=== PATIENT | male | born 1955 | race Caucasian/White ===

== ENCOUNTER 2016-08-12 17:20 | Emergency (ER) | payer OTHER ==
[~2016-08-12] VITALS: Ht 185.4 cm; Wt 84.8 kg
[2016-08-12 17:29] VITALS: BP 168/98
[2016-08-12 17:55] LABS: APPEARANCE,URINE Clear (CLEAR); BILIRUBIN,URINE Negative (NEGATIVE); BLOOD, URINE Moderate Ery/uL (NEGATIVE); COLOR,URINE Yellow (YELLOW); KETONES,URINE Negative (NEGATIVE); LEUKOCYTE ESTERASE ,URINE Negative (NEGATIVE); NITRITE, URINE Negative (NEGATIVE); PROTEIN,URINE Negative (NEGATIVE); UGLUCOSE Negative (NEGATIVE); UROBILINOGEN,URINE 0.2 EU/dL (0.2)
[2016-08-12 18:05] LABS: BACTERIA,URINE None seen /HPF (None Seen); SQUAMOUS EPITHELIAL CELL,UR Rare /HPF (None Seen)
== END 2016-08-12 18:26 | disposition home or self-care (01) ==
LOC: ER 17:22
DX: N39.0 Urinary tract infection, site not specified (principal); Z87.442 Personal history of urinary calculi
CPT/HCPCS: 81001; 99283; A4606; Z7610; 81000-TC

== ENCOUNTER 2017-01-24 15:36 | Emergency (ER) | payer BC ==
[~2017-01-24] VITALS: Ht 182.9 cm; Wt 78.0 kg
[2017-01-24 16:08] VITALS: BP 137/103
[2017-01-24] MEDS ORDERED: IBUPROFEN 400 MG TABLET ONE (16:18)
[2017-01-24] MEDS ORDERED: IBUPROFEN 400 MG TABLET PO ONE (16:30)
--- NOTE | 2017-01-24 16:31 | NUR ---
CELL TECHNICIAN AT BEDSIDE
== END 2017-01-24 17:28 | disposition home or self-care (01) ==
LOC: ER 15:46
DX: S52.122A Displaced fracture of head of left radius, initial encounter for closed fracture (principal); S52.612A Displaced fracture of left ulna styloid process, initial encounter for closed fracture; Z87.442 Personal history of urinary calculi; W01.0XXA Fall on same level from slipping, tripping and stumbling without subsequent striking against object, initial encounter; Y93.89 Activity, other specified; Y92.89 Other specified places as the place of occurrence of the external cause; Y99.8 Other external cause status
CPT/HCPCS: 29125; 73100; 99284; A4606; Z7610

== ENCOUNTER 2017-08-07 14:38 | Emergency (ER) | payer BC, MEDICAID ==
[~2017-08-07] VITALS: Ht 185.4 cm; Wt 80.7 kg
[2017-08-07 15:32] LABS: BASOPHILS % (AUTO) 0.3 % (0.0-2.0); EOSINOPHILS % (AUTO) 2.6 % (0.0-6.0); HEMATOCRIT 44 % (39-51); HEMOGLOBIN 14.8 g/dL (13.5-17.5); LYMPHOCYTES # (AUTO) 1.2 /CMM (0.8-4.8); LYMPHOCYTES % (AUTO) 19.5 % (20.0-44.0); MEAN CORPUSCULAR HGB CONC 34 g/dl (31.0-36.0); MEAN CORPUSCULAR VOLUME 84 fL (80-96); MONOCYTES # (AUTO) 0.6 /CMM (0.1-1.30); MONOCYTES % (AUTO) 9.2 % (2.0-12.0); NEUTROPHILS # (AUTO) 4.2 /CMM (1.8-8.9); NEUTROPHILS % (AUTO) 68.4 % (43.0-81.0); PLATELET COUNT (AUTO) 190 /CMM (150-450); RDW COEFFICIENT OF VARIATION 12.7 (11.5-15.0); RED BLOOD CELL COUNT(AUTO) 5.18 MIL/uL (4.5-6.0); WHITE BLOOD COUNT (AUTO) 6.2 K/uL (4.3-11.0)
[2017-08-07 15:47] LABS: CALCIUM, SERUM 8.7 mg/dL (8.5-10.1); POTASSIUM 3.5 mmol/L (3.5-5.1)
[2017-08-07 15:53] LABS: ALBUMIN 3.8 g/dL (3.4-5.0); BILIRUBIN,DIRECT 0.1 mg/dL (0.0-0.2); BILIRUBIN,TOTAL 0.6 mg/dL (0.2-1.0); TOTAL PROTEIN, SERUM 6.8 g/dL (6.4-8.2)
[2017-08-07 16:13] VITALS: BP 140/84
== END 2017-08-07 16:22 | disposition home or self-care (01) ==
LOC: ER 14:40
DX: K92.1 Melena (principal); Z98.890 Other specified postprocedural states; Z85.46 Personal history of malignant neoplasm of prostate
CPT/HCPCS: 36415; 80048; 80076; 85025; 85730; 99284; A4606; Z7610

== ENCOUNTER 2017-09-06 07:43 | Emergency (ER) | payer MEDICAID ==
[~2017-09-06] VITALS: Ht 185.4 cm; Wt 79.4 kg
[2017-09-06] MEDS ORDERED: KETOROLAC TROMETHAMINE INJ 30 MG/ML VIAL ONE (08:34)
[2017-09-06] MEDS ORDERED: ONDANSETRON HCL/PF 4 MG/2 ML VIAL ONE (08:34)
[2017-09-06] MEDS: IV NS 0.9% 1,000 ML BAG IV ONE (08:39)
[2017-09-06 08:40] LABS: BASOPHILS % (AUTO) 0.4 % (0.0-2.0); EOSINOPHILS % (AUTO) 3.3 % (0.0-6.0); HEMATOCRIT 44 % (39-51); HEMOGLOBIN 15.1 g/dL (13.5-17.5); LYMPHOCYTES # (AUTO) 0.6 /CMM (0.8-4.8); LYMPHOCYTES % (AUTO) 12.6 % (20.0-44.0); MEAN CORPUSCULAR HEMOGLOBIN 30 PG (26.0-33.0); MEAN CORPUSCULAR HGB CONC 35 g/dl (31.0-36.0); MEAN CORPUSCULAR VOLUME 87 fL (80-96); MONOCYTES # (AUTO) 0.4 /CMM (0.1-1.30); MONOCYTES % (AUTO) 7.4 % (2.0-12.0); NEUTROPHILS # (AUTO) 3.9 /CMM (1.8-8.9); NEUTROPHILS % (AUTO) 76.3 % (43.0-81.0); PLATELET COUNT (AUTO) 165 /CMM (150-450); RED BLOOD CELL COUNT(AUTO) 5.07 MIL/uL (4.5-6.0); WHITE BLOOD COUNT (AUTO) 5.1 K/uL (4.3-11.0)
[2017-09-06] MEDS: ONDANSETRON HCL/PF 4 MG/2 ML VIAL IVP ONE (08:40)
[2017-09-06] MEDS: KETOROLAC TROMETHAMINE INJ 30 MG/ML VIAL IV ONE (08:40)
[2017-09-06 08:52] LABS: CALCIUM, SERUM 9.1 mg/dL (8.5-10.1); CREATININE 1.2 mg/dL (0.6-1.3)
[2017-09-06 10:35] VITALS: BP 148/67
== END 2017-09-06 10:37 | disposition home or self-care (01) ==
LOC: ER 07:45
DX: N20.0 Calculus of kidney (principal); Z85.46 Personal history of malignant neoplasm of prostate; Z98.890 Other specified postprocedural states
CPT/HCPCS: 36415; 80048-TC; 85025-TC; A4606; J1885; J2405; J7030; Z7610

== ENCOUNTER 2018-08-20 21:28 | Emergency (ER) | payer MEDICAID, OTHER ==
[~2018-08-20] VITALS: Ht 185.4 cm; Wt 85.7 kg
--- NOTE | 2018-08-20 21:43 | NUR ---
Note [email or web address] in EDM - 08/20/18 at 2147 by CATIE BIB SELF FROM HOME. AAOX4. NO SOB. BREATHING EVEN AND UNLABORED. AMBULATORY. C/O L ELBOW PAIN WITH MOVEMENT. LIMITED ROM NOTED, UNABLE TO STRAIGHTEN OR BEND. DENIES TRAUMA. TO ER BED 10. AT BEDSIDE REJI PIERRE
--- NOTE | 2018-08-20 21:43 | NUR ---
BIB SELF FROM HOME. AAOX4. NO SOB. BREATHING EVEN AND UNLABORED. AMBULATORY. C/O L ELBOW PAIN WITH MOVEMENT STARTED NOON. LIMITED ROM NOTED, UNABLE TO STRAIGHTEN OR BEND. DENIES TRAUMA. TO ER BED 10. AT BEDSIDE REJI PIERRE
--- NOTE | 2018-08-20 21:55 | NUR ---
XRAY AT BEDSIDE
[2018-08-20] MEDS ORDERED: IBUPROFEN 400 MG TABLET ONE (21:57)
[2018-08-20] MEDS ORDERED: IBUPROFEN 400 MG TABLET PO ONE (22:00)
--- NOTE | 2018-08-20 23:07 | NUR ---
Note malik in EDM - 08/20/18 at 2308 by LIZA Patient discharged to home in stable condition. Written and verbal after care instructions given. Patient verbalizes understanding of instruction.IV removed. Catheter intact and site benign. Pressure and 4x4 applied to site. No bleeding noted.
--- NOTE | 2018-08-20 23:08 | NUR ---
Patient discharged to home in stable condition. Written and verbal after care instructions given. Patient verbalizes understanding of instruction.Pt ambulatory with a steady gait
[2018-08-20 23:09] VITALS: BP 154/89
--- NOTE | 2018-08-20 23:10 | NUR ---
Patient discharged to home in stable condition. Written and verbal after care instructions given. Patient verbalizes understanding of instruction. Pt ambulatory with a steady gait
== END 2018-08-20 23:11 | disposition home or self-care (01) ==
LOC: ER 21:31
DX: S53.492A Other sprain of left elbow, initial encounter (principal); I10 Essential (primary) hypertension; Z85.46 Personal history of malignant neoplasm of prostate; Z87.442 Personal history of urinary calculi; Z98.890 Other specified postprocedural states; X58.XXXA Exposure to other specified factors, initial encounter; Y93.89 Activity, other specified; Y92.89 Other specified places as the place of occurrence of the external cause; Y99.8 Other external cause status
CPT/HCPCS: 73080-TC

== ENCOUNTER 2022-06-11 14:27 | Inpatient (IN) | payer MEDICARE, BC ==
[~2022-06-11] VITALS: Ht 185.4 cm; Wt 80.3 kg
--- NOTE | 2022-06-11 14:27 | NUR ---
BIBA FOR DIZZINESS AND WEAKNESS WHICH BEGAN THIS MORNING. A/O X 3, ABLE TO MAKE NEEDS KNOWN, NIHSS 0, TOLERATING WELL ON ROOM AIR.
--- NOTE | 2022-06-11 14:40 | NUR ---
ACCUCHECK 123
[2022-06-11] MEDS ORDERED: MECLIZINE HCL 12.5 MG TABLET PO ONE (15:00)
[2022-06-11] MEDS ORDERED: ONDANSETRON 4 MG TAB.RAPDIS PO ONE (15:00)
[2022-06-11] MEDS ORDERED: MECLIZINE HCL 25 MG TABLET ONE (15:22)
[2022-06-11] MEDS ORDERED: ONDANSETRON 4 MG TAB.RAPDIS ONE (15:22)
[2022-06-11 15:25] LABS: BASOPHILS % (AUTO) 0.2 % (0.0-2.0); EOSINOPHILS % (AUTO) 0.1 % (0.0-6.0); HEMATOCRIT 37 % (39-51); HEMOGLOBIN 12.6 g/dL (13.5-17.5); LYMPHOCYTES # (AUTO) 0.3 K/uL (0.8-4.8); LYMPHOCYTES % (AUTO) 3.5 % (20.0-44.0); MEAN CORPUSCULAR HGB CONC 34 g/dl (31.0-36.0); MEAN CORPUSCULAR VOLUME 87 fL (80-96); MONOCYTES # (AUTO) 0.7 K/uL (0.1-1.30); MONOCYTES % (AUTO) 7.4 % (2.0-12.0); NEUTROPHILS % (AUTO) 88.8 % (43.0-81.0); PLATELET COUNT (AUTO) 174 K/uL (150-450); RED BLOOD CELL COUNT(AUTO) 4.28 MIL/uL (4.5-6.0)
--- NOTE | 2022-06-11 15:28 | NUR ---
BLOOD SAMPLES OBTAINED
[2022-06-11 15:35] LABS: CALCIUM, SERUM 9.5 mg/dL (8.5-10.1); CARBON DIOXIDE 24 mmol/L (21-32); CHLORIDE 104 mmol/L (98-107); CREATININE 1.2 mg/dL (0.6-1.3); GLUCOSE 157 mg/dL (74-106); SODIUM SERUM 137 mmol/L (136-145); UREA NITROGEN, BLOOD 16 mg/dL (7-18)
[2022-06-11 15:42] LABS: ALANINE AMINOTRANSFERASE 27 U/L (12-78); ALBUMIN 3.6 g/dL (3.4-5.0); ALKALINE PHOSPHATASE 93 U/L (46-116); ASPARTATE AMINOTRANSFERASE 18 U/L (15-37); BILIRUBIN,DIRECT 0.1 mg/dL (0.0-0.2); BILIRUBIN,TOTAL 0.6 mg/dL (0.2-1.0); TOTAL PROTEIN, SERUM 6.7 g/dL (6.4-8.2)
--- NOTE | 2022-06-11 16:30 | NUR ---
COVID SWAB OBTAINED
--- NOTE | 2022-06-11 17:09 | NUR ---
[facility] CALLED NET ARCHITECT PAGED.
[2022-06-11] MEDS ORDERED: ACETAMINOPHEN 325 MG TABLET PO PRN (17:30)
[2022-06-11] MEDS ORDERED: Z GUARD REMEDY 4 OZ OINT TP PRN (17:30)
[2022-06-11] MEDS ORDERED: MORPHINE SULFATE INJ 2 MG/ML DISP.SYRIN IV PRN (17:30)
[2022-06-11] MEDS ORDERED: hydrALAZINE HCL IV 20 MG VIAL IV PRN (17:30)
[2022-06-11] MEDS ORDERED: ONDANSETRON HCL/PF 4 MG/2 ML VIAL IVP PRN (17:30)
--- NOTE | 2022-06-11 18:28 | NUR ---
room assigned, rm 101. admitting aware
--- NOTE | 2022-06-11 18:46 | NUR ---
Report given to ELISABET Senior
--- NOTE | 2022-06-11 19:00 | NUR ---
IT NETWORK ENGINEER NOTES: PT TRANSFERRED TO [place] FROM ER VIA [facility], PLACE IN ROOM 101. PT AWAKE, ALERT/ORIENTED X4 AND VERBALLY RESPONSIVE. ON ROOM AIR AND PT TOLERATED WELL. O2 SAT 98%. IV ACCESS ON RAC#20G INTACT AND PATENT. NO S/S OF INFILTRATIONS. NO C/O PAIN OR DISCOMFORT. NO ACUTE DISTRESS. BODY ASSESSMENT DONE. NO OPEN SKIN NOTED. FAMILY MEMBERS AT BEDSIDE. ALL SAFETY MEASURES IN PLACE. SIDE RAILS UP X3, BED IN LOWEST POSITION AND LOCKED. PLACE CALL LIGHT WITH IN REACH. WILL CONTINUE TO MONITOR
[2022-06-11 20:00] VITALS: BP 149/90
[2022-06-11] MEDS: IV NS 0.9% 1,000 ML IV PRN (22:11)
[2022-06-12] VITALS: BP 127/78
[2022-06-12 04:00] VITALS: BP 135/82
[2022-06-12 06:34] LABS: ALBUMIN 3.1 g/dL (3.4-5.0); BILIRUBIN,TOTAL 0.6 mg/dL (0.2-1.0); CALCIUM, SERUM 9.4 mg/dL (8.5-10.1); CREATININE 0.9 mg/dL (0.6-1.3); MAGNESIUM 2.2 mg/dL (1.8-2.4); PHOSPHORUS 3.9 mg/dL (2.5-4.9); TOTAL PROTEIN, SERUM 5.9 g/dL (6.4-8.2)
[2022-06-12 07:10] LABS: BASOPHILS % (AUTO) 0.1 % (0.0-2.0); EOSINOPHILS % (AUTO) 0.2 % (0.0-6.0); HEMATOCRIT 34 % (39-51); HEMOGLOBIN 11.5 g/dL (13.5-17.5); LYMPHOCYTES # (AUTO) 0.4 K/uL (0.8-4.8); LYMPHOCYTES % (AUTO) 6.1 % (20.0-44.0); MEAN CORPUSCULAR HGB CONC 34 g/dl (31.0-36.0); MEAN CORPUSCULAR VOLUME 88 fL (80-96); MONOCYTES # (AUTO) 0.5 K/uL (0.1-1.30); MONOCYTES % (AUTO) 7.3 % (2.0-12.0); NEUTROPHILS # (AUTO) 5.5 K/uL (1.8-8.9); NEUTROPHILS % (AUTO) 86.3 % (43.0-81.0); PLATELET COUNT (AUTO) 170 K/uL (150-450); RED BLOOD CELL COUNT(AUTO) 3.85 MIL/uL (4.5-6.0); WHITE BLOOD COUNT (AUTO) 6.4 K/uL (4.3-11.0)
--- NOTE | 2022-06-12 07:42 | NUR ---
FISH PROCESSING SUPERVISOR NOTES: PT RECEIVED IN BED, ASLEEP. ON ROOM AIR AND TOLERATING WELL WITH NO SIGNS OF SOB OR DISTRESS. BREATHING EVEN AND UNLABORED. IV ACCESS ON RAC#20G INTACT AND PATENT WITH NO S/S OF INFILTRATIONS. ALL SAFETY MEASURES IN PLACE WITH SIDE RAILS UP X3, BED IN LOWEST POSITION AND LOCKED, CALL LIGHT WITHIN REACH. WILL CONTINUE TO MONITOR Addendum: 06/12/22 at 0745 by MOHSEN MONTEZ RN FISH PROCESSING SUPERVISOR OPENING NOTES
[2022-06-12 08:00] VITALS: BP 128/88
--- NOTE | 2022-06-12 09:40 | NUR ---
RN NOTES ON MRI DR GRIJALVA WANTS STAT MRI W/O CONTRAST. CONTACTED MRI TWICE WITH NO RESPONSE. WILL CONTINUE TO FOLLOW UP.
[2022-06-12] MEDS: IV NS 0.9% 1,000 ML IV PRN ×2 (09:42→23:02)
[2022-06-12] MEDS: LISINOPRIL (10MG) 10 MG TABLET PO SCH ×2 (09:47→09:52)
--- NOTE | 2022-06-12 10:49 | NUR ---
SS NOTE: Per Keisha HELTON,the pt.'s son, Aiden wants a public notary contact. OLYA called Aiden tel: [phone] and provided mobile Pia parker tel:[phone]. Aiden stated the pt. is considering completing an advanced healthcare directive.
[2022-06-12] MEDS ORDERED: GADOTERATE MEGLUMINE 10 MMOL/20 ML VIAL IV ONE (11:50)
[2022-06-12 12:00] VITALS: BP 133/82
--- NOTE | 2022-06-12 15:13 | NUR ---
RN NOTES ON [facility] (PROSTATE CANCER MED) PHARMACY REQUESTED PATIENT BRING IN MEDS. PATIENT'S FAMILY WILL BRING IN TOMORROW.
--- NOTE | 2022-06-12 15:15 | NUR ---
RN NOTES ON MRI RESULTS DR HAWKINS WILL CALL PATIENT'S ONCOLOGIST WITH RESULTS TOMORROW. REQUESTS SCREENSHOT OF RESULTS WHEN AVAILABLE.
[2022-06-12 16:00] VITALS: BP 153/91
--- NOTE | 2022-06-12 19:24 | NUR ---
AREA REPRESENTATIVE CLOSING NOTES: PT RESTING IN BED WITH FAMILY AT BEDSIDE. ON ROOM AIR AND TOLERATING WELL WITH NO SIGNS OF SOB OR DISTRESS. BREATHING EVEN AND UNLABORED. ON [employer] SUPERVISOR READING SR 66. IV ACCESS ON RAC#20G INTACT AND PATENT WITH NO S/S OF INFILTRATIONS RUNNING NS @ 90ML/HR. ALL SAFETY MEASURES IN PLACE WITH SIDE RAILS UP X3, BED IN LOWEST POSITION AND LOCKED, CALL LIGHT WITHIN REACH. WILL ENDORSE TO ONCOMING SHIFT FOR GIGI.
--- NOTE | 2022-06-12 19:45 | NUR ---
RN OPENING NOTES: RECEIVED PT IN BED, AWAKE, ALERT/ORIENTED X4 AND VERBALLY RESPONSIVE. ON ROOM AIR AND PT TOLERATED WELL. IV ACCESS ON RAC#20G INTACT AND PATENT. NO S/S OF INFILTRATIONS. RUNNING NS AT 90CC/HR. NO C/O PAIN OR DISCOMFORT. NO ACUTE DISTRESS. FAMILY MEMBERS AT BEDSIDE. ALL SAFETY MEASURES IN PLACE. SIDE RAILS UP X3, BED IN LOWEST POSITION AND LOCKED. PLACE CALL LIGHT WITH IN REACH. WILL CONTINUE TO MONITOR
[2022-06-12 20:00] VITALS: BP 126/74
[2022-06-13] VITALS: BP 130/80
[2022-06-13 04:00] VITALS: BP 135/80
--- NOTE | 2022-06-13 06:32 | NUR ---
RN CLOSING NOTES: PT IN BED, AWAKE, ALERT/ORIENTED X4 AND VERBALLY RESPONSIVE. ON ROOM AIR AND PT TOLERATED WELL. O2 SAT 98%. IV ACCESS ON RAC#20G INTACT AND PATENT. NO S/S OF INFILTRATIONS. RUNNING NS AT 90CC/HR. NO C/O PAIN OR DISCOMFORT. NO ACUTE DISTRESS.NO SIGNIFICANT CHANGES DURING THE SHIFT. ALL SAFETY MEASURES IN PLACE. SIDE RAILS UP X3, BED IN LOWEST POSITION AND LOCKED. PLACE CALL LIGHT WITH IN REACH. WILL ENDORSE TO MORNING SHIFT NURSE.
--- NOTE | 2022-06-13 07:14 | NUR ---
RN OPENING NOTES: PT RECEIVED IN BED, AWAKE, ALERT/ORIENTED X4 AND VERBALLY RESPONSIVE. ON ROOM AIR AND TOLERATING WELL. IV ACCESS ON RAC#20G INTACT AND PATENT. NO S/S OF INFILTRATIONS. RUNNING NS AT 90CC/HR. NO C/O PAIN OR DISCOMFORT. NO ACUTE DISTRESS. ALL SAFETY MEASURES IN PLACE. SIDE RAILS UP X3, BED IN LOWEST POSITION AND LOCKED. PLACE CALL LIGHT WITH IN REACH. WILL CONTINUE TO MONITOR.
[2022-06-13 08:00] VITALS: BP 140/76
[2022-06-13 09:04] VITALS: BP 140/76
[2022-06-13] MEDS: LISINOPRIL (10MG) 10 MG TABLET PO SCH (09:04)
[2022-06-13] MEDS ORDERED: LISI10TA29 PO (09:13)
[2022-06-13] MEDS ORDERED: PANT40TA49 PO (09:13)
--- NOTE | 2022-06-13 12:39 | NUR ---
PT DISCHARGED IN STABLE CONDITION
== END 2022-06-13 12:55 | disposition home or self-care (01) | DRG 149 ==
LOC: ER 14:29 → TELE1 18:30
PROVIDERS: ADMIT Internal Medicine; ATTEND Internal Medicine
DX: H81.10 Benign paroxysmal vertigo, unspecified ear (principal); I61.9 Nontraumatic intracerebral hemorrhage, unspecified; Q28.3 Other malformations of cerebral vessels; I10 Essential (primary) hypertension; K40.90 Unilateral inguinal hernia, without obstruction or gangrene, not specified as recurrent; Z87.442 Personal history of urinary calculi; D64.9 Anemia, unspecified; Z85.46 Personal history of malignant neoplasm of prostate; Z20.822 Contact with and (suspected) exposure to COVID-19; Z98.890 Other specified postprocedural states
CPT/HCPCS: 36415; 70450-TC; 70553-TC; 71045-TC; 80048-TC; 80053-TC; 80076-TC; 82962-TC; 83735-TC; 84100-TC; 84484-TC; 85025-TC; 87081-TC; 93307-TC; 97530-TC; A4223; A6403; A9575; C9803; G0378; J7030; J8597; Q0162